=== PATIENT | male | born 1985 | race Two or more races ===

== ENCOUNTER 2016-10-15 14:23 | Emergency (ER) | payer OTHER ==
[~2016-10-15] VITALS: Ht 195.6 cm; Wt 127.0 kg
[2016-10-15 14:55] LABS: Basophils # (auto) 0 uL; Basophils % (auto) 0.2 % (0.0-2.0); CONDITION Y; Eosinophils # (auto) 0 uL; Eosinophils % (auto) 0.1 % (0.0-7.0); Hematocrit 50.1 % (41.0-53.0); Hemoglobin 17.2 g/dL (13.5-17.5); Lymphocytes # (auto) 1.5 uL; Lymphocytes % (auto) 14.5 % (10.0-50.0); Mean Corpuscular Hemoglobin 29.5 pg (28.0-32.0); Mean Corpuscular Hgb Conc. 34.3 g/dL (32.0-36.0); Mean Corpuscular Volume 86.1 fL (80.0-100.0); Mean Platelet Volume 8.9 fL (7.4-10.4); Monocytes # (auto) 0.7 uL; Monocytes % (auto) 6.5 % (0.0-12.0); Neutrophils % (auto) 78.7 % (37.0-80.0); Platelet Count (auto) 338 10^3/uL (140-450); Red Cell Distribution Width 13.9 % (11.6-16.0); White Blood Cell 10.2 10^3/uL (4.4-10.8)
[2016-10-15] MEDS: SODIUM CHLORIDE 0.9% 500 ML IV ONE (14:55)
[2016-10-15 15:16] LABS: Albumin 5.5 g/dL (3.4-5.0); Chloride 103 mmol/L (98-107); Potassium 4.5 mmol/L (3.5-5.1); Sodium 138 mmol/L (136-145)
[2016-10-15 15:19] LABS: Anion Gap 14 (5-15); Aspartate Aminotransferase 45 U/L (15-37); BUN/Creatinine Ratio 8.4; Blood Urea Nitrogen 24 mg/dL (7-18); Calcium 10.4 mg/dL (8.5-10.1); Carbon Dioxide 21 mmol/L (21-32); GFR African American 33 mL/min; GFR Non-African American 27 mL/min; Glucose 90 mg/dL (74-106)
[2016-10-15 15:27] LABS: Alkaline Phosphatase 86 U/L (45-117); Bilirubin, Total 2.8 mg/dL (0.2-1.0); Total Protein 9.3 g/dL (6.4-8.2)
[2016-10-15] MEDS: SODIUM CHLORIDE 0.9% 1,000 ML IV ONE ×2 (15:32→17:27)
[2016-10-15] MEDS: ONDANSETRON HCL 4 MG/2 ML VIAL IV ONE (15:32)
[2016-10-15] MEDS: KETOROLAC TROMETH 30 MG/ML 1ML VIAL IV ONE (15:32)
[2016-10-15 17:54] VITALS: BP 129/73
== END 2016-10-15 18:31 | disposition home or self-care (01) ==
LOC: ER 14:23
DX: T67.5XXA Heat exhaustion, unspecified, initial encounter (principal); E86.0 Dehydration; I10 Essential (primary) hypertension; X30.XXXA Exposure to excessive natural heat, initial encounter; Y93.89 Activity, other specified; Y92.89 Other specified places as the place of occurrence of the external cause; Y99.8 Other external cause status
CPT/HCPCS: 36415; 80053; 82550; 82962; 84484; 85025; 93005; 96361; 96374; 96375; 99285; J1885; J2405; J7030